=== PATIENT | female | born 1965 | race Caucasian/White ===

== ENCOUNTER 2017-08-27 11:53 | Day surgery (SDC) | payer BC, OTHER ==
[~2017-08-27 11:53] MED LIST: Lactated Ringers 1,000 ML IV SCH; Sodium Chloride 0.9% 10 ML Syringe FLUSH PRN
[2017-08-27] MEDS ORDERED: Midazolam 1 MG/ML 2 ML SDV ONE (12:55)
[2017-08-27] MEDS ORDERED: fentaNYL 100 MCG/2 ML SDV ONE (12:55)
[2017-08-27] MEDS ORDERED: Propofol 200 MG/20 ML SDV ONE (12:55)
--- NOTE | 2017-08-27 13:35 | PCM.OPNOTE ---
- General Post-Op/Procedure Note Date of Surgery/Procedure: 08/27/17 Operative Procedure(s): Colonoscopy with polypectomy Findings: sig polyp at 40 cm Pre Op Diagnosis: FH Colon Ca Post-Op Diagnosis: Same Anesthesia Technique: MAC Primary Surgeon: Aj Fraire Anesthesia Provider: Jayleen Triana EBL in mLs: 0 Complications: None Condition: Good Free Text/Narrative:: Intake & Output 08/26/17 08/27/17 08/27/17 22:59 06:59 14:59 Intake Total 700 Balance 700
--- NOTE | 2017-08-28 08:09 | OR ---
Date of Procedure: 08/27/2017 PREOPERATIVE DIAGNOSIS: Family history of colon cancer in brother. POSTOPERATIVE DIAGNOSIS: Sigmoid colon polyp. PROCEDURE: Colonoscopy with polypectomy. ANESTHESIA: IV sedation. PROCEDURE IN DETAIL: The patient was brought to the procedure room where she was placed on her left side and IV sedation administered. Digital rectal exam was performed, which was normal. Colonoscope was inserted and advanced to the level of the cecum with some difficulty getting through a tortuous sigmoid colon. Cecum was reached and confirmed by identifying the appendiceal lumen and ileocecal valve. Prep was good and surfaces were well visualized. Upon withdrawing the scope, the ascending, transverse, and descending colon were normal in appearance. Sigmoid colon had an 8 mm sessile polyp located 40 cm from the anal verge, this was mostly behind a fold. I did try to snare this and only cauterized the top portion of this. Therefore, the hot biopsy forceps were taken and this was removed piecemeal. There appears to be some adequate specimen for pathology review and polyp appears to be completely removed. The remaining sigmoid colon and rectum were normal. Retroflexion was normal. Air was removed and the scope withdrawn. Patient tolerated the procedure well and returned to recovery in stable condition. I recommend the patient to undergo a repeat colonoscopy again in three years because of her family history and the appearance of the polyp. The pathology report may not be sales service representative of the polyp because of cautery artifact and therefore, I feel this should be re- evaluated again in three years. I will have her follow up with Misty Reid in one week for review of pathology. JM HUNG MD /[id number]
== END 2017-08-27 15:11 | disposition home or self-care (01) ==
LOC: LL.SDS 11:53
PROVIDERS: ATTEND Surgery
DX: Z12.11 Encounter for screening for malignant neoplasm of colon (principal); K63.5 Polyp of colon; Z80.0 Family history of malignant neoplasm of digestive organs; Z79.899 Other long term (current) drug therapy
CPT/HCPCS: 45384; J2250; J2704; J3010; J7120

== ENCOUNTER 2017-12-04 13:27 | Emergency (ER) | payer BC, OTHER ==
--- NOTE | 2017-12-04 14:50 | EDM.PDOC ---
ED HPI GENERAL MEDICAL PROBLEM - General Chief Complaint: Upper Extremity Injury/Pain Stated Complaint: right hand injury Time Seen by Provider: 12/04/17 13:45 Source of Information: Reports: Patient History Limitations: Reports: No Limitations - History of Present Illness INITIAL COMMENTS - FREE TEXT/NARRATIVE: Right hand of patient pinched between two large totes while at work. Has pain mostly around 2nd metacarpal, also swelling dorsally. Able to move wrist/ fingers but has had limitation in mobility since carpal tunnel release surgery one month ago. No significant change in ROM since pinching injury. No other injury reported. No laceration or abrasion present. No new numbness/tingling. 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 HELPER: ibuprofen Right Hand Pain Score (Numeric/FACES): 9 - Related Data Allergies Allergy/AdvReac Type Severity Reaction Status Date / Time No Known Allergies Allergy Verified 12/04/17 13:33 Home Meds: Home Meds Biotin 7,500 mcg PO DAILY 08/27/17 [History] Cetirizine [ZyrTEC] 10 mg PO DAILY 08/27/17 [History] Cholecalciferol (Vitamin D3) [Vitamin D3] 5,000 unit PO DAILY 08/27/17 [History] Multivitamin [Multivitamins] 2 tab PO DAILY 08/27/17 [History] Naproxen 500 mg PO BEDTIME PRN 08/27/17 [History] Non-Formulary Medication [NF Drug] 1 cap PO DAILY 08/27/17 [History] Non-Formulary Medication [NF Drug] 1 tab PO DAILY 08/27/17 [History] Non-Formulary Medication [NF Drug] 1 tab PO DAILY 08/27/17 [History] L.acidoph,Paracasei, B.lactis [Probiotic] 1 each PO DAILY 12/04/17 [History] Past Medical History HEENT History: Reports: Allergic Rhinitis Cardiovascular History: Reports: Hypertension Respiratory History: Reports: None Gastrointestinal History: Reports: None Genitourinary History: Reports: None Musculoskeletal History: Reports: None Neurological History: Reports: None Psychiatric History: Reports: Anxiety Endocrine/Metabolic History: Reports: None Hematologic History: Reports: None Immunologic History: Reports: None Oncologic (Cancer) History: Reports: None Dermatologic History: Reports: None Social & Family History - Tobacco Use Smoking Status *Q: Never Smoker Second Hand Smoke Exposure: No - Caffeine Use Caffeine Use: Reports: Tea - Alcohol Use Number of Drinks Per Day: 3 - Recreational Drug Use Recreational Drug Use: No Review of Systems - Review of Systems Review Of Systems: ROS reveals no pertinent complaints other than HPI. ED EXAM, GENERAL - Physical Exam Exam: See Below Exam Limited By: No Limitations General Appearance: Alert, WD/WN, Mild Distress Eye Exam: Bilateral Eye: EOMI, PERRL Head: Atraumatic, Normocephalic Neck: Supple Respiratory/Chest: No Respiratory Distress, Lungs Clear, Normal Breath Sounds, No Accessory Muscle Use Cardiovascular: Regular Rate, Rhythm, No Murmur Peripheral Pulses: 2+: Radial (L), Radial (R) Extremities: Other (Right hand exam shows healing incision line from recent carpal tunnel surgery. Some swelling and early bruising noted dorsally on hand over 2nd/3rd metacarpals. Tissue intact. Patient able to flex and extend wrist slowly. Able to move all fingers. Wrist nontender dorsally but is tender over incision line. Fingers non-tender. Hand tender around 2nd/3rd metacarpals. Vascularly intact, sensation present. ) Neurological: Alert, Oriented, Normal Cognition, Normal Gait Course - Vital Signs Last Recorded V/S: Last Vital Signs Temp Pulse 85 12/04/17 13:27 Resp 20 12/04/17 13:27 BP 131/85 12/04/17 13:27 Pulse Ox 98 12/04/17 13:27 - Orders/Labs/Meds Orders: Active Orders 24 hr Category Date Time Status Hand Comp Min 3V Rt [CR] Stat Exams 12/04/17 13:46 Ordered - Re-Assessments/Exams Free Text/Narrative Re-Assessment/Exam: Xray of hand did not show signs of acute fracture. Patient placed in wrist splint for comfort and protection of injured area. Radiology reviewed film and did not note fracture. Patient is not scheduled to work until Thursday. Will have her follow up Thursday morning at [facility] with primary provider to recheck injury and place patient on further work restrictions as needed. She is currently on 10# lifting limit due to carpal tunnel surgery. She has PT/OT scheduled for 3 times next week. Departure - Departure Time of Disposition: 14:48 Disposition: Home, Self-Care 01 Condition: Good Clinical Impression: Contusion of right hand, initial encounter - Discharge Information Instructions: Hand Contusion, [id number] Referrals: PCP,Unknown [Ordering Only Provider] - Forms: ED Department Discharge Additional Instructions: Wear brace for comfort. Tylenol or Ibuprofen for pain as needed. Ice may be helpful. Follow up Thursday for recheck with [facility] and further work restrictions as needed. - My Orders Last 24 Hours: My Active Orders 12/04/17 13:46 Hand Comp Min 3V Rt [CR] Stat - Assessment/Plan Last 24 Hours: My Active Orders 12/04/17 13:46 Hand Comp Min 3V Rt [CR] Stat
== END 2017-12-04 15:05 | disposition home or self-care (01) ==
LOC: LL.ED 13:27
DX: S60.221A Contusion of right hand, initial encounter (principal); I10 Essential (primary) hypertension; Z79.899 Other long term (current) drug therapy; W23.1XXA Caught, crushed, jammed, or pinched between stationary objects, initial encounter
CPT/HCPCS: 73130-RT; 99283

== ENCOUNTER 2021-05-06 10:57 | Emergency (ER) | payer MEDICAID ==
--- NOTE | 2021-05-06 11:20 | EDM.PDOC ---
ED HPI GENERAL MEDICAL PROBLEM - General Chief Complaint: General Stated Complaint: L LOWER BACK PAIN Time Seen by Provider: 05/06/21 11:10 Source of Information: Reports: Patient History Limitations: Reports: No Limitations - History of Present Illness INITIAL COMMENTS - FREE TEXT/NARRATIVE: Patient presents to the ED with low back pain with radiation down the left buttock. She states she did not injure it. She has cervical spine problems that she has muscle relaxers for, sees chiropractor and physical therapy. Over the last two days she has had significant pain in the left si joint area and downt he left buttock. No loss of control of bowel or bladder. no perineal numbness. Has taken her regular medications but fidining it difficult to walk due to the pain. no numbness, and is able to use the left leg, just hurts. 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: Acetaminophen, Cold Therapy, Heat Therapy, NSAIDS, Other Medication(s) Left Lower Back Pain Score (Numeric/FACES): 7 - Related Data Allergies Allergy/AdvReac Type Severity Reaction Status Date / Time No Known Allergies Allergy Verified 12/04/17 13:33 Home Meds: Home Meds Cetirizine [ZyrTEC] 10 mg PO DAILY 08/27/17 [History] Cholecalciferol (Vitamin D3) [Vitamin D3] 5,000 unit PO DAILY 08/27/17 [History] Multivitamin [Multivitamins] 2 tab PO DAILY 08/27/17 [History] Non-Formulary Medication [NF Drug] 1 tab PO DAILY 08/27/17 [History] Non-Formulary Medication [NF Drug] 1 tab PO DAILY 08/27/17 [History] Gabapentin [Neurontin] 300 mg PO TID 05/06/21 [History] Hydrocodone/Acetaminophen [HYDROcodone-Acetaminophen 5-325 MG] 1 each PO Q4HR PRN #20 tab 05/06/21 [Rx] QUEtiapine [SEROquel] 100 mg PO BEDTIME 05/06/21 [History] Past Medical History HEENT History: Reports: Allergic Rhinitis Cardiovascular History: Reports: Hypertension Respiratory History: Reports: None Gastrointestinal History: Reports: None Genitourinary History: Reports: None Musculoskeletal History: Reports: None Neurological History: Reports: None Psychiatric History: Reports: Anxiety Endocrine/Metabolic History: Reports: None Hematologic History: Reports: None Immunologic History: Reports: None Oncologic (Cancer) History: Reports: None Dermatologic History: Reports: None Social & Family History - Caffeine Use Caffeine Use: Reports: Tea ED ROS GENERAL - Review of Systems Review Of Systems: See Below Constitutional: Reports: No Symptoms. Denies: Fever, Chills, Weakness, Fatigue HEENT: Reports: No Symptoms Respiratory: Reports: No Symptoms. Denies: Shortness of Breath, Wheezing Cardiovascular: Reports: No Symptoms Endocrine: Reports: No Symptoms GI/Abdominal: Reports: No Symptoms. Denies: Abdominal Pain, Constipation, Diarrhea, Nausea, Vomiting : Reports: No Symptoms Musculoskeletal: Reports: Back Pain Skin: Reports: No Symptoms Neurological: Reports: Difficulty Walking (due to back pain). Denies: Confusion, Pre-Existing Deficit, Tremors, Weakness Psychiatric: Reports: No Symptoms Hematologic/Lymphatic: Reports: No Symptoms ED EXAM, GENERAL - Physical Exam Exam: See Below Exam Limited By: No Limitations General Appearance: Alert, WD/WN, Moderate Distress Eye Exam: Bilateral Eye: EOMI, Normal Inspection, PERRL Ears: Normal External Exam Nose: Normal Inspection, Normal Mucosa Throat/Mouth: Normal Inspection, Normal Lips, Normal Teeth, Normal Voice Head: Atraumatic, Normocephalic Neck: Normal Inspection Respiratory/Chest: No Respiratory Distress, Lungs Clear, Normal Breath Sounds Cardiovascular: Normal Peripheral Pulses, Regular Rate, Rhythm GI/Abdominal: Normal Bowel Sounds, Soft, Non-Tender, No Abnormal Bruit Back Exam: Other (tenderness to palpation of the left si joint, along the left sciatic distribution and left paraspinal muscle spasm. no lesions or rashes. Has weakness to hip flexion, knee extension and plantar flexion. 2/4 compared to the right. normal sensation bilaterally. able to weight bear, can roll over ) Extremities: Normal Inspection, Normal Range of Motion, No Pedal Edema Neurological: Alert, Oriented, CN II-XII Intact, Normal Cognition Psychiatric: Normal Affect Course - Vital Signs Last Recorded V/S: Last Vital Signs Temp 36.4 C 05/06/21 10:58 Pulse 58 L 05/06/21 10:58 Resp 16 05/06/21 10:58 BP 116/69 05/06/21 10:58 Pulse Ox 98 05/06/21 10:58 - Orders/Labs/Meds Meds: Medications Discontinued Medications Generic Name Dose Route Start Last Admin Trade Name Emigdio PRN Reason Stop Dose Admin Diazepam 10 mg 05/06/21 11:27 05/06/21 12:20 Diazepam 10 Mg/2 Ml Syringe IM 05/06/21 11:28 10 mg ONETIME ONE Administration Hydromorphone HCl 1 mg 05/06/21 11:26 05/06/21 12:20 Hydromorphone 1 Mg/Ml Syringe IM 05/06/21 11:27 1 mg ONETIME ONE Administration Methylprednisolone Sodium Succinate 125 mg 05/06/21 11:26 05/06/21 12:19 Methylprednisolone Sodium Succinate 125 Mg/2 Ml Sdv IM 05/06/21 11:27 125 mg ONETIME ONE Administration - Re-Assessments/Exams Free Text/Narrative Re-Assessment/Exam: 05/06/21 14:15 patient does not have any red flags, normal sensation but pain. Will give Im dilaudid 1 mg, valium 10 mg im, an solu medrol. After sitting for an hour, able to get herself up to the side of bed and stand without assistance. Will send home with #10 valium one every 8 hours, tramadol one every 6 hours, and a prescription for hydrocodone 20 to fill tomorrow. will follow up with PCP Departure - Departure Time of Disposition: 13:45 Disposition: Home, Self-Care 01 Clinical Impression: Back pain - Discharge Information Prescriptions: Hydrocodone/Acetaminophen [HYDROcodone-Acetaminophen 5-325 MG] 1 each PO Q4HR PRN #20 tab PRN Reason: Pain Instructions: Acute Back Pain, Adult Referrals: Misty Reid NP [Primary Care Provider] - Forms: ED Department Discharge Additional Instructions: Take the valium 1 tablet every 8 hours as needed for muscle spasm. Take the tramadol one tablet every 6 hours as needed for pain. Fill prescription for hydrocodone tomorrow and stop taking the tramadol. Follow up with PCP, physial therapy and chiropractor. DO NOT drive while on these medications or today. You were given Dilaudid, Valium and Solu Medrol ( a steroid). Movement is encouraged as spasm may get worse laying still Sepsis Event Note (ED) - Focused Exam Vital Signs: Vital Signs Temp Pulse Resp BP Pulse Ox 05/06/21 10:58 36.4 C 58 L 16 116/69 98
[2021-05-06] MEDS ORDERED: HYDROmorphone 1 MG/ML Syringe IM ONE (11:26)
[2021-05-06] MEDS ORDERED: methylPREDNISolone Sodium Succinate 125 MG/2 ML SDV IM ONE (11:26)
== END 2021-05-06 14:30 | disposition home or self-care (01) ==
LOC: LL.ED 10:57
DX: M54.5 Low back pain (principal); I10 Essential (primary) hypertension
CPT/HCPCS: 96372; 99283; J1170; J2930; J3360

== ENCOUNTER 2024-09-28 19:30 | Emergency (ER) | payer MEDICAID, MEDICARE ==
[2024-09-28] MEDS ORDERED: Sodium Chloride 0.9% 10 ML Syringe FLUSH PRN (19:37)
[2024-09-28] MEDS ORDERED: Naloxone 0.4 MG/ML SDV IVPUSH ONE (19:37)
[2024-09-28 19:57] LABS: BASOPHILS ABSOLUTE AUTO 0.06 K/uL (0.00-0.20); BASOPHILS PERCENT AUTO 0.9 % (0.0-2.0); EOSINOPHILS ABSOLUTE AUTO 0.24 K/uL (0.00-0.50); EOSINOPHILS PERCENT AUTO 3.6 % (0.0-5.0); HEMATOCRIT 47.7 % (34.0-46.0); HEMOGLOBIN 16.3 g/dL (11.7-15.5); IMMATURE GRAN ABSOLUTE AUTO 0.02 10^3/uL (0.00-0.04); IMMATURE GRAN PERCENT AUTO 0.3 % (0.0-0.4); LYMPHOCYTES ABSOLUTE AUTO 2.91 K/uL (0.50-3.50); LYMPHOCYTES PERCENT AUTO 43.4 % (10.0-50.0); MEAN CORPUSCULAR HEMOGLOBIN 33.1 pg (28.2-33.3); MEAN CORPUSCULAR HGB CONC 34.2 g/dL (31.7-36.0); MONOCYTES ABSOLUTE AUTO 0.51 K/uL (0.00-1.00); MONOCYTES PERCENT AUTO 7.6 % (2.0-14.0); NEUTROPHILS ABSOLUTE AUTO 2.97 K/uL (1.40-7.00); NEUTROPHILS PERCENT AUTO 44.2 % (45.0-80.0); PLATELET COUNT,PLT 158 K/uL (150-350); RED BLOOD CELL COUNT 4.92 M/uL (3.77-5.09); RED CELL DISTRIBUTION WIDTH 12.4 % (11.2-14.1); WHITE BLOOD CELL COUNT,WBC 6.7 K/uL (4.0-10.2)
[2024-09-28 20:23] LABS: APPEARANCE,URINE CLEAR; BILIRUBIN,URINE NEGATIVE (NEGATIVE); COLOR,URINE YELLOW; GLUCOSE,URINE NEGATIVE (NEGATIVE); KETONES,URINE NEGATIVE (NEGATIVE); LEUKOCYTE ESTERASE,URINE NEGATIVE (NEGATIVE); NITRITE,URINE NEGATIVE (NEGATIVE); OCCULT BLOOD,URINE NEGATIVE (NEGATIVE); PH,URINE 5.5 (5.0-9.0); PROTEIN,URINE NEGATIVE (NEGATIVE); UROBILINOGEN,URINE 0.2 E.U./dL (0.2-1.0)
[2024-09-28 20:23] LABS: ALANINE AMINOTRANSFERASE,ALT 135 U/L (12-78); ALBUMIN 4.2 g/dL (3.4-5.0); ALKALINE PHOSPHATASE 150 IU/L (46-116); ANION GAP 13.8 meq/L (7-15); ASPARTATE AMNIOTRANSFERASE,AST 123 U/L (15-37); BILIRUBIN TOTAL 0.5 mg/dL (0.2-1.0); BLOOD UREA NITROGEN,BUN 17 mg/dL (7-18); CALCIUM 9.6 mg/dL (8.5-10.1); CARBON DIOXIDE,CO2 25.2 mmol/L (21.0-32.0); CHLORIDE,CL 104 mmol/L (98-107); CREATININE 0.79 mg/dL (0.51-1.17); ETHANOL BLOOD MEDICAL 0.207 g/dL (0.000-0.080); GLUCOSE RANDOM 105 mg/dL (70-99); MAGNESIUM 2.2 mg/dL (1.8-2.4); POTASSIUM,K 3.9 mmol/L (3.5-5.1); PROTEIN TOTAL,TP 8.1 g/dL (6.4-8.2); SODIUM,NA 143 mmol/L (136-145)
[2024-09-28 20:26] LABS: ESTIMATED GFR 86 mL/min (>=60)
[2024-09-28] MEDS: Sodium Chloride 0.9% 1,000 ML IV ONE (20:33)
[2024-09-28] MEDS ORDERED: Sodium Chloride 0.9% 1,000 ML IV ONE (21:26)
[2024-09-28] MEDS ORDERED: Take Home: Ondansetron 4 MG Tab.DIS, 5 Tab Pack PO ONE (21:27)
== END 2024-09-28 22:20 | disposition home or self-care (01) ==
LOC: LL.ED 19:30
DX: F10.10 Alcohol abuse, uncomplicated (principal); I10 Essential (primary) hypertension; F17.200 Nicotine dependence, unspecified, uncomplicated; Z79.899 Other long term (current) drug therapy; Z79.2 Long term (current) use of antibiotics; Y90.7 Blood alcohol level of 200-239 mg/100 ml
CPT/HCPCS: 36415; 80053; 80307; 81003; 83605; 83735; 85025; 96360; 99284; 99284-25; J7030